=== PATIENT | male | born 1950 | race Caucasian/White ===

== ENCOUNTER 2018-06-07 14:09 | Day surgery (SDC) | payer MEDICARE ==
[~2018-06-07] VITALS: Ht 193 cm; Wt 122.6 kg
[~2018-06-07 14:09] MED LIST: ASCO500 PO; ASPI325; ATENOLOL-? DOSE; CALCAVITDA; CARV25 PO; CARV3.125 PO; CHOL10002 PO; CRUTCH2 USE; CYCL10 PO; Caltrate-600 W1 EACH PO; Coq-10100 MG PO; Coreg CR20 MG; DIGO.25; Depo-Testos200 MG/ML IM; HYDACE5 PO; LISI10 PO; LOSA25 PO; Lamisil At6 GM PO; MULVITB&C PO; MULVITMIND; MYRBETRIQ25 MG PO; OMEG1CAP30 PO; OMEP20ER; OMEP20ER PO; PROACE100 PO; SCOPTP TOP; TAMS.4ER PO; TERBINAFINE HCL PO; TRAACE PO; VALS80 PO; Vitamin C100 M1 PO; WARF3 PO; WARF5 PO; [UNRECOGNIZED DRUG - REMARK]
== END 2018-06-07 15:49 | disposition home or self-care (01) ==
LOC: ORSCSDS 14:09
PROVIDERS: Surgery
PROC: 0DBK8ZX Excision of Ascending Colon, Via Natural or Artificial Opening Endoscopic, Diagnostic (ICD-10-PCS; principal; 2018-06-07 15:15)
PROC: 0DBL8ZX Excision of Transverse Colon, Via Natural or Artificial Opening Endoscopic, Diagnostic (ICD-10-PCS; principal; 2018-06-07 15:15)
DX: Z86.010 Personal history of colon polyps (principal); D12.2 Benign neoplasm of ascending colon; D12.3 Benign neoplasm of transverse colon; I10 Essential (primary) hypertension; I48.91 Unspecified atrial fibrillation; Z79.01 Long term (current) use of anticoagulants; Z95.0 Presence of cardiac pacemaker; Z79.899 Other long term (current) drug therapy

== ENCOUNTER 2018-10-24 07:29 | Emergency (ER) | payer MEDICARE ==
[~2018-10-24] VITALS: Ht 193 cm; Wt 122.5 kg
[~2018-10-24 07:29] MED LIST changes: +WARF2 PO
[2018-10-24 08:11] LABS: BASOPHILS ABSOLUTE AUTO 0.04 K/mm3 (0.00-0.23); BASOPHILS PERCENT AUTO 1 % (0-2); EOSINOPHILS ABSOLUTE AUTO 0.24 K/mm3 (0.00-0.68); EOSINOPHILS PERCENT AUTO 4 % (0-6); Hematocrit 54.7 % (37.0-53.0); Hemoglobin 17.6 g/dL (13.5-17.5); IMMATURE GRAN ABSOLUTE AUTO 0.04 K/mm3 (0.00-0.10); IMMATURE GRAN PERCENT AUTO 1 % (0-1); LYMPHOCYTES ABSOLUTE AUTO 1.59 K/mm3 (0.84-5.20); LYMPHOCYTES PERCENT AUTO 24 % (21-46); MONOCYTES ABSOLUTE AUTO 0.43 K/mm3 (0.16-1.47); MONOCYTES PERCENT AUTO 6 % (4-13); Mean Corpuscular HGB Conc 32.2 g/dL (31.5-36.5); Mean Corpuscular Volume 97 fL (80-100); Mean Platelet Volume 10.9 fL (9.1-12.4); NEUTROPHILS ABSOLUTE AUTO 4.39 K/mm3 (1.96-9.15); NEUTROPHILS PERCENT AUTO 65 % (41-73); Platelet Count 142 K/mm3 (150-400); RDW Coefficient Variation 14.4 % (11.7-14.2); RDW Standard Deviation 51.6 fL (35.1-46.3); Red Blood Cell Count 5.67 M/mm3 (4.30-5.90); White Blood Cell Count 6.73 K/mm3 (4.00-11.30)
[2018-10-24 08:30] LABS: Alanine Aminotransfer (ALT/SGP 40 U/L (12-78); Albumin, Blood 3.8 g/dL (3.4-5.0); Alk Phos 63 U/L (50-136); Anion Gap 6 mmol/L (6-16); Aspartate Aminotrans (AST/SGOT 29 U/L (12-37); Bilirubin, Total 1.1 mg/dL (0.1-1.0); Blood Urea Nitrogen 17 mg/dL (8-24); Bun/Creatinine Ratio 15.3 (12.0-20.0); CO2, Blood 29 mmol/L (21-32); Calcium, Blood 8.3 mg/dL (8.5-10.1); Chloride, Blood 105 mmol/L (98-108); Creatinine, Blood 1.11 mg/dL (0.60-1.20); Globulin, Blood 3.7 g/dL (2.2-4.0); Glomerular Filtration Rate >60 (60-); Glucose, Blood 169 mg/dL (70-99); Potassium, Blood 5.9 mmol/L (3.5-5.5); Sodium, Blood 140 mmol/L (136-145); Total Protein, Blood 7.5 g/dL (6.4-8.2); Troponin I <0.015 ng/mL (0.000-0.040)
[2018-10-24 10:42] LABS: International Normalized Ratio 3.56; Prothrombin Time Results 34.1 Sec (9.7-11.5)
== END 2018-10-24 11:15 | disposition home or self-care (01) ==
LOC: ER 07:29
PROVIDERS: Emergency Medicine
DX: R42 Dizziness and giddiness (principal); E87.5 Hyperkalemia; I48.91 Unspecified atrial fibrillation; Z88.5 Allergy status to narcotic agent; Z79.899 Other long term (current) drug therapy; Z79.01 Long term (current) use of anticoagulants; K21.9 Gastro-esophageal reflux disease without esophagitis; Z87.891 Personal history of nicotine dependence
CPT/HCPCS: 36415; 80053; 84484; 85025; 85610; 93005; 93010; 96361; 96374; 99284-25; J2550; J7030

== ENCOUNTER → 2019-05-06 | Outpatient (CLI) | payer MEDICARE | END | disposition home or self-care (01) | LOC: LAB 19:25 → LAB SHORT 19:25 | DX: J02.9 Acute pharyngitis, unspecified (principal) | CPT/HCPCS: 87081 ==

== ENCOUNTER 2020-04-01 05:48 | Day surgery (SDC) | payer MEDICARE ==
[~2020-04-01] VITALS: Ht 193 cm; Wt 125.0 kg
[~2020-04-01 05:48] MED LIST changes: +ASPIR 8181 M1 PO; +ATOR20 PO; -CHOL10002 PO; +Omega 3 1,0001 EACH PO; +SILODOSIN8 MG PO; -TRAACE PO; +Ultracet PO; +VITAMIN B COMP1 EACH PO; +VITAMIN D31000 UNI1 PO
[2020-04-01] MEDS ORDERED: Coumadin2 MG PO (06:36)
[2020-04-01 06:50] LABS: International Normalized Ratio 1.4; Prothrombin Time Results 14.7 Sec (9.7-11.5)
--- NOTE | 2020-04-01 08:32 | NUR ---
PT RETURNED TO RECOVERY ROOM IN RECLINER. RIGHT RADIAL TR BAND SITE WITH WRIST BOARD SOFT NON-TENDER WITH NO HEMATOMA, NO PULSATILE BLEEDING. RIGHT AC VENOUS SITE SOFT NON-TENDER WITH NO HEMATOMA, NO BLEEDING AND INTACT DRESSING. PT DENIES CP. PT DRINKING COFFEE WITH CALL LIGHT IN REACH.
--- NOTE | 2020-04-01 08:41 | NUR ---
NO CHANGES TO EITHER RIGHT RADIAL TR BAND SITE OR RIGHT AC SITE.
--- NOTE | 2020-04-01 09:10 | NUR ---
NO CHANGES TO RIGHT RADIAL OR RIGHT AC SITES. PT EATING BREAKFAST.
--- NOTE | 2020-04-01 09:37 | NUR ---
NO CHANGES TO RIGHT RADIAL OR RIGHT AC SITES.
--- NOTE | 2020-04-01 10:30 | NUR ---
DISCHARGE INSTRUCTIONS REVIEWED ALL QUESTIONS ANSWERED. 5 CC OF AIR REMOVED OUT OF RIGHT TR BAND THEN PULSATILE BLEEDING NOTED - 3 CC AIR PLACED BACK INTO TR BAND TO STOP BLEEDING - WILL CONTINUE TO MONITOR.
--- NOTE | 2020-04-01 10:59 | NUR ---
9 CC OF AIR REMOVED OVER 10 MIN OUT OF NOW DEFLATED RIGHT TR BAND - NO HEMATOMA, NO PULSATILE BLEEDING, SOFT NON-TENDER.
--- NOTE | 2020-04-01 11:06 | NUR ---
NO CHANGES TO DEFLATED RIGHT TR BAND SITE. NO CHANGES TO RIGHT AC SITE.
--- NOTE | 2020-04-01 12:06 | NUR ---
DEFLATED RIGHT TR BAND REMOVED AND POLYMEM PLACED OVER RIGHT RADIAL SITE. NO CHANGES TO RIGHT AC SITE. 20 IV DISCONTINUED FROM LEFT AC WITH INTACT CANNULA. PT AMBULATED TO BR TO VOID. PT ESCORTED OUT VIA WHEELCHAIR ESCORT. NO CHANGES TO RIGHT RADIAL SITE.
== END 2020-04-01 12:10 | disposition home or self-care (01) ==
LOC: MHTC 05:48
PROVIDERS: Internal Medicine Cardiovascular Disease
PROC: B2111ZZ Fluoroscopy of Multiple Coronary Arteries using Low Osmolar Contrast (ICD-10-PCS; principal; 2020-04-01)
PROC: 4A023N8 Measurement of Cardiac Sampling and Pressure, Bilateral, Percutaneous Approach (ICD-10-PCS; principal; 2020-04-01)
DX: I42.0 Dilated cardiomyopathy (principal); I25.10 Atherosclerotic heart disease of native coronary artery without angina pectoris; I48.19 Other persistent atrial fibrillation; I10 Essential (primary) hypertension; E66.01 Morbid (severe) obesity due to excess calories; I77.819 Aortic ectasia, unspecified site; Z95.810 Presence of automatic (implantable) cardiac defibrillator; Z95.5 Presence of coronary angioplasty implant and graft; Z79.899 Other long term (current) drug therapy; Z79.01 Long term (current) use of anticoagulants; Z79.82 Long term (current) use of aspirin; Z87.891 Personal history of nicotine dependence
CPT/HCPCS: 85610; 93460; 99152; 99153; C1769; C1894; J0690; J1644; J2250; J3010; J7030; Q9967

== ENCOUNTER 2021-11-29 10:30 | Emergency (ER) | payer MEDICARE ==
[~2021-11-29] VITALS: Ht 172.7 cm; Wt 99.8 kg
[~2021-11-29 10:30] MED LIST changes: +Coumadin2 MG PO
[2021-11-29 11:09] LABS: BASOPHILS ABSOLUTE AUTO 0.05 K/mm3 (0.00-0.23); BASOPHILS PERCENT AUTO 1 % (0-2); EOSINOPHILS ABSOLUTE AUTO 0.17 K/mm3 (0.00-0.68); EOSINOPHILS PERCENT AUTO 2 % (0-6); Hematocrit 53.7 % (37.0-53.0); Hemoglobin 17.8 g/dL (13.5-17.5); IMMATURE GRAN ABSOLUTE AUTO 0.03 K/mm3 (0.00-0.10); IMMATURE GRAN PERCENT AUTO 0 % (0-1); LYMPHOCYTES ABSOLUTE AUTO 2.13 K/mm3 (0.84-5.20); LYMPHOCYTES PERCENT AUTO 28 % (21-46); MONOCYTES ABSOLUTE AUTO 0.53 K/mm3 (0.16-1.47); MONOCYTES PERCENT AUTO 7 % (4-13); Mean Corpuscular HGB 30.7 pg (26.0-34.0); Mean Corpuscular HGB Conc 33.1 g/dL (31.5-36.5); Mean Corpuscular Volume 93 fL (80-100); Mean Platelet Volume 12.2 fL (9.1-12.4); NEUTROPHILS ABSOLUTE AUTO 4.73 K/mm3 (1.96-9.15); NEUTROPHILS PERCENT AUTO 62 % (41-73); Platelet Count 136 K/mm3 (150-400); RDW Coefficient Variation 12.7 % (11.7-14.2); RDW Standard Deviation 43.1 fL (35.1-46.3); White Blood Cell Count 7.64 K/mm3 (4.00-11.30)
[2021-11-29 11:20] LABS: Albumin, Blood 4.2 g/dL (3.4-5.0); Albumin/Globulin Ratio 1.1 (0.8-1.8); Bilirubin, Total 0.8 mg/dL (0.1-1.0); Bun/Creatinine Ratio 26.5 (12.0-20.0); Calcium, Blood 9.1 mg/dL (8.5-10.1); Creatinine, Blood 1.32 mg/dL (0.60-1.20); Globulin, Blood 3.7 g/dL (2.2-4.0); Potassium, Blood 4.7 mmol/L (3.5-5.5); Total Protein, Blood 7.9 g/dL (6.4-8.2)
[2021-11-29 11:24] LABS: International Normalized Ratio 1.7; Prothrombin Time Results 17.2 Sec (9.7-11.5)
== END 2021-11-29 12:17 | disposition home or self-care (01) ==
LOC: ER 10:30
PROVIDERS: Anesthesiology; Emergency Medicine
DX: R55 Syncope and collapse (principal); S01.01XA Laceration without foreign body of scalp, initial encounter; I48.20 Chronic atrial fibrillation, unspecified; Z87.891 Personal history of nicotine dependence; Z88.5 Allergy status to narcotic agent; Z79.899 Other long term (current) drug therapy; X58.XXXA Exposure to other specified factors, initial encounter
CPT/HCPCS: 70450; 71045; 72125; 80053; 83880; 84484; 85025; 85610; 90471; 90714; 93005; 93010; 99284-25

== ENCOUNTER 2021-12-26 11:20 | Emergency (ER) | payer MEDICARE ==
[~2021-12-26] VITALS: Ht 193 cm; Wt 117.9 kg
[2021-12-26] MEDS ORDERED: JANTOVEN2 MG PO (11:59)
[2021-12-26 12:00] LABS: BASOPHILS ABSOLUTE AUTO 0.02 K/mm3 (0.00-0.23); BASOPHILS PERCENT AUTO 0 % (0-2); EOSINOPHILS ABSOLUTE AUTO 0.14 K/mm3 (0.00-0.68); EOSINOPHILS PERCENT AUTO 2 % (0-6); Hemoglobin 16.4 g/dL (13.5-17.5); IMMATURE GRAN ABSOLUTE AUTO 0.01 K/mm3 (0.00-0.10); IMMATURE GRAN PERCENT AUTO 0 % (0-1); LYMPHOCYTES ABSOLUTE AUTO 1.49 K/mm3 (0.84-5.20); LYMPHOCYTES PERCENT AUTO 25 % (21-46); MONOCYTES ABSOLUTE AUTO 0.37 K/mm3 (0.16-1.47); MONOCYTES PERCENT AUTO 6 % (4-13); Mean Corpuscular HGB 30.4 pg (26.0-34.0); Mean Corpuscular HGB Conc 32.8 g/dL (31.5-36.5); Mean Corpuscular Volume 93 fL (80-100); Mean Platelet Volume 11.7 fL (9.1-12.4); NEUTROPHILS ABSOLUTE AUTO 3.93 K/mm3 (1.96-9.15); NEUTROPHILS PERCENT AUTO 66 % (41-73); Platelet Count 141 K/mm3 (150-400); RDW Coefficient Variation 13.2 % (11.7-14.2); RDW Standard Deviation 44.9 fL (35.1-46.3); Red Blood Cell Count 5.39 M/mm3 (4.30-5.90); White Blood Cell Count 5.96 K/mm3 (4.00-11.30)
[2021-12-26] MEDS ORDERED: ENTRESTO 97 MG1 EAC3 PO (12:00)
[2021-12-26] MEDS ORDERED: METFORMIN HCL500 M2 PO (12:01)
[2021-12-26] MEDS ORDERED: ACE PO (12:04)
[2021-12-26] MEDS ORDERED: TRAMADOL PO (12:04)
[2021-12-26] MEDS ORDERED: LATANOPROST2.5 M3 LEFTEYE (12:08)
[2021-12-26 12:25] LABS: International Normalized Ratio 2.15; Prothrombin Time Results 21.5 Sec (9.7-11.5)
[2021-12-26 12:28] LABS: Albumin, Blood 4.1 g/dL (3.4-5.0); Albumin/Globulin Ratio 1.1 (0.8-1.8); Bun/Creatinine Ratio 20.2 (12.0-20.0); Creatinine, Blood 1.19 mg/dL (0.60-1.20); Globulin, Blood 3.8 g/dL (2.2-4.0); Potassium, Blood 4.7 mmol/L (3.5-5.5); Total Protein, Blood 7.9 g/dL (6.4-8.2)
== END 2021-12-26 16:02 | disposition home or self-care (01) ==
LOC: ER 11:20
PROVIDERS: Emergency Medicine; Physician Assistant
DX: R55 Syncope and collapse (principal); K21.9 Gastro-esophageal reflux disease without esophagitis
CPT/HCPCS: 36415; 71045; 80053; 83690; 84484; 85025; 85610; 93005; 93010; 99284-25; J7030

== ENCOUNTER 2022-01-14 08:32 | Day surgery (SDC) | payer MEDICARE ==
[~2022-01-14] VITALS: Ht 190.5 cm; Wt 116.0 kg
[~2022-01-14 08:32] MED LIST changes: +ACE PO; +ENTRESTO 97 MG1 EAC3 PO; +ENTRESTO 97 MG1 EACH PO; +JANTOVEN2 MG PO; +LATANOPROST2.5 M3 LEFTEYE; +METFORMIN HCL500 M2 PO; +TRAMADOL PO
[2022-01-14 10:33] LABS: International Normalized Ratio 1.84; Prothrombin Time Results 18.6 Sec (9.7-11.5)
--- NOTE | 2022-01-14 13:20 | NUR ---
patient in recovery room, alert and responds appropriately. right groin ite soft and nontender, dressing D&I, no hematoma, no bleeding.
--- NOTE | 2022-01-14 14:41 | NUR ---
PATIENT HOB UP 30 DEGREE. RIGHT GROIN SITE STABLE.
--- NOTE | 2022-01-14 15:45 | NUR ---
PATIENT AMBULATED TO REST ROOM BY SELF, DENIES DIZZINESS, RIGHT GROIN SITE STABLE.
--- NOTE | 2022-01-14 16:00 | NUR ---
PATIENT DRESSED SITTING AT SIDE OF BED. DR HEATH TO DISCUSS ANGIOGRAM FINDINGS WITH PATIENT AND .
--- NOTE | 2022-01-14 16:10 | NUR ---
PATIENT VERBALIZED UNDERSTANDING OF DISCHARGE INSTRUCTIONS AND PRECAUTIONS. NO FURTHER QUESTIONS. IV SITE DCED WITH CATHETER INTACT. RIGHT GROIN REMAINS SOFT AND NONTENDER, NO HEMATOMA, NO BLEEDING. PATIENT TRANSFERRED VIA WHEEL CHAIR BY CHARAN BREEN TO CAR WITH E DRIVEING.
== END 2022-01-14 23:20 | disposition home or self-care (01) ==
LOC: MHTC 08:32
PROVIDERS: Radiology Diagnostic Radiology
DX: G45.0 Vertebro-basilar artery syndrome (principal); I25.10 Atherosclerotic heart disease of native coronary artery without angina pectoris; I11.0 Hypertensive heart disease with heart failure; I50.9 Heart failure, unspecified; I48.19 Other persistent atrial fibrillation; E78.5 Hyperlipidemia, unspecified; Z88.5 Allergy status to narcotic agent; Z95.0 Presence of cardiac pacemaker; Z79.01 Long term (current) use of anticoagulants
CPT/HCPCS: 36223; 36225; 36226; 36245; 36246; 36247; 36415; 76937; 85610; 99152; 99153; C1760; C1769; C1887; C1894; J1644; J2250; J3010; J7030; J7050; Q9967

== ENCOUNTER → 2022-09-12 | Outpatient (CLI) | payer MEDICARE ==
[2022-09-12 13:46] LABS: Protein, Urine Quantitative 11.1 mg/dL (0.0-11.9)
== END | disposition home or self-care (01) ==
LOC: LAB 10:53 → LAB SHORT 10:53
PROVIDERS: Family Medicine
DX: R80.9 Proteinuria, unspecified (principal)
CPT/HCPCS: 81050; 84156

== ENCOUNTER 2022-10-20 06:26 | Day surgery (SDC) | payer MEDICARE ==
[~2022-10-20] VITALS: Ht 190.5 cm; Wt 116.0 kg
[2022-10-20] MEDS ORDERED: EZET10 PO (07:04)
[2022-10-20] MEDS ORDERED: METO100ER PO (07:09)
[2022-10-20] MEDS ORDERED: [UNRECOGNIZED DRUG - REMARK] TOP (07:13)
--- NOTE | 2022-10-20 10:11 | NUR ---
pt report from miguel archibald. pt a&ox4. pt sitting up in chair eating breakfast.
--- NOTE | 2022-10-20 11:11 | NUR ---
PRESCRIPTION CALLED INTO PHARMACY. PT FINISHED EATING BREAKFAST. SO AT BEDSIDE.
--- NOTE | 2022-10-20 11:40 | NUR ---
PT GIVEN COFFEE PER REQUEST.
--- NOTE | 2022-10-20 14:21 | NUR ---
PT GIVEN DC INSTRUCTIONS AND VERBALIZED UNDERSTADNING. IV OUT. PT CHANGED INTO CLOTHES. DR JOHNS CHANGED DRESSING. PT TAKEN TO [facility] VIA WC BY RAJAN ORDAZ.
== END 2022-10-20 12:45 | disposition home or self-care (01) ==
LOC: MHTC 06:26
DX: Z45.02 Encounter for adjustment and management of automatic implantable cardiac defibrillator (principal); I25.10 Atherosclerotic heart disease of native coronary artery without angina pectoris; I10 Essential (primary) hypertension; E78.5 Hyperlipidemia, unspecified; I48.19 Other persistent atrial fibrillation; I42.0 Dilated cardiomyopathy
CPT/HCPCS: 33263; 99152; 99153; C1721; C1781; J0690; J1644; J2250; J3010; J7030; J7040

== ENCOUNTER → 2023-12-09 | Outpatient (CLI) | payer MEDICARE ==
[~2023-12-09] MED LIST changes: +EZET10 PO; +METO100ER PO; +[UNRECOGNIZED DRUG - REMARK] TOP
== END ==
LOC: LAB SHORT 10:00 → LAB 10:00
DX: L97.509 Non-pressure chronic ulcer of other part of unspecified foot with unspecified severity (principal)
CPT/HCPCS: 87070; 87075; 87077; 87147; 87186; 87205

== ENCOUNTER 2024-11-07 06:43 | Day surgery (SDC) | payer MEDICARE ==
[~2024-11-07] VITALS: Ht 193 cm; Wt 116.0 kg
[2024-11-07] VITALS (7 sets, daily range): BP systolic 94–106; BP diastolic 56–80
[~2024-11-07 06:43] MED LIST changes: +ENTRESTO 49 MG1 EAC2; -ENTRESTO 97 MG1 EAC3 PO; +GABA100 PO; -JANTOVEN2 MG PO; +JANTOVEN2.5 M2 PO; +MULTIVITAMIN; +THERA-D2000 UNIT PO; -VITAMIN D31000 UNI1 PO
[2024-11-07] MEDS ORDERED: Heparin Sodium 1000 Units/ML 10ML MDV ONE ×2 (06:49→08:29)
[2024-11-07] MEDS ORDERED: NS 500 ML IV ONE (06:49)
[2024-11-07] MEDS ORDERED: NS 1,000 ML IV ONE ×2 (06:49→07:49)
[2024-11-07] MEDS ORDERED: PREG150 PO (07:15)
[2024-11-07] MEDS ORDERED: Midazolam HCl 1MG / ML 2ML Vial ONE ×2 (07:48→08:29)
[2024-11-07] MEDS ORDERED: FentaNYL Citrate 50 MCG/ML 2 ML Injection ONE ×2 (07:49→08:29)
[2024-11-07] MEDS ORDERED: Verapamil HCL 2.5 MG/ML 2ML Injection ONE (08:58)
[2024-11-07] MEDS ORDERED: Nitroglycerin 2 MG/20 ML BTL ONE (08:58)
--- NOTE | 2024-11-07 10:17 | NUR ---
PT RETURNED TO RECOVERY ROOM IN BED. LEFT FEMORAL GROIN SITE SOFT NON-TENDER WITH NO HEMATOMA, NO PULSATILE BLEEDING AND INTACT DRESSING. R DP PEDAL SITE SOFT NON-TENDER WITH NO HEMATOMA, NO PULSATILE BLEEDING AND INTACT DRESSING. PT'S IN ROOM. CALL LIGHT IN REACH. DR LANCE IN ROOM TO SEE PT.
--- NOTE | 2024-11-07 11:04 | NUR ---
HOB UP TO 45 DEGREES.
--- NOTE | 2024-11-07 11:25 | NUR ---
NO CHANGES TO R DP OR L FEM SITES. DISCHARGE INSTURCTIONS REVIEWED ALL QUESTIONS ANSWERED. PT DRINKING COFFEE.
--- NOTE | 2024-11-07 12:01 | NUR ---
R DP AND L FEM SITES STILL SOFT NON-TENDER WITH NO HEMATOMA AND NO PULSATILE BLEEDING. 20 G IV DISCONTINUED FROM LEFT AC WITH INTACT CANNULA. PT ESCORTED OUT VIA WHEELCHAIR ESCORT. L PT STILL DOPPLER.
== END 2024-11-07 12:00 | disposition home or self-care (01) ==
LOC: MHTC 06:43
DX: E11.51 Type 2 diabetes mellitus with diabetic peripheral angiopathy without gangrene (principal); I70.235 Atherosclerosis of native arteries of right leg with ulceration of other part of foot; L97.519 Non-pressure chronic ulcer of other part of right foot with unspecified severity; I10 Essential (primary) hypertension; I25.10 Atherosclerotic heart disease of native coronary artery without angina pectoris; E78.5 Hyperlipidemia, unspecified; I48.91 Unspecified atrial fibrillation; G47.33 Obstructive sleep apnea (adult) (pediatric); Z87.891 Personal history of nicotine dependence; Z79.82 Long term (current) use of aspirin; Z79.84 Long term (current) use of oral hypoglycemic drugs; Z79.01 Long term (current) use of anticoagulants; Z79.899 Other long term (current) drug therapy; Z88.5 Allergy status to narcotic agent; Z95.0 Presence of cardiac pacemaker
CPT/HCPCS: 36140; 36200; 36245; 75625; 75710; 75716; 75774; 76937; 85347; 99152; 99153; C1725; C1753; C1760; C1769; C1887; C1894; J1644; J2250; J3010; J7030; J7050; Q9967

== ENCOUNTER → 2025-02-28 | Outpatient (CLI) | payer MEDICARE ==
[~2025-02-28] MED LIST changes: +PREG150 PO
== END | disposition home or self-care (01) ==
LOC: LAB 13:00 → LAB SHORT 13:00
DX: R31.0 Gross hematuria (principal)
CPT/HCPCS: 82043

== ENCOUNTER 2025-03-06 10:22 | Inpatient (IN) | payer MEDICARE ==
[~2025-03-06] VITALS: Ht 193 cm; Wt 118.2 kg
[~2025-03-06 10:22] MED LIST changes: +ENTRESTO 24 MG1 EACH PO; -ENTRESTO 49 MG1 EAC2
[2025-03-06] MEDS ORDERED: Metoprolol Tartrate 1 MG/ML 5 ML VIAL IV PRN (11:05)
[2025-03-06] MEDS ORDERED: NS 1,000 ML IV SCH ×2 (11:05→17:00)
[2025-03-06] MEDS ORDERED: Ondansetron HCl 2 MG / ML 2ML Vial IV ONE (11:05)
[2025-03-06 11:26] LABS: BASOPHILS ABSOLUTE AUTO 0.04 K/mm3 (0.00-0.23); BASOPHILS PERCENT AUTO 0 % (0-2); EOSINOPHILS ABSOLUTE AUTO 0.04 K/mm3 (0.00-0.68); EOSINOPHILS PERCENT AUTO 0 % (0-6); Hematocrit 45.1 % (37.0-53.0); Hemoglobin 14.8 g/dL (13.5-17.5); IMMATURE GRAN ABSOLUTE AUTO 0.03 K/mm3 (0.00-0.10); IMMATURE GRAN PERCENT AUTO 0 % (0-1); LYMPHOCYTES ABSOLUTE AUTO 1.27 K/mm3 (0.84-5.20); LYMPHOCYTES PERCENT AUTO 10 % (21-46); MONOCYTES ABSOLUTE AUTO 0.42 K/mm3 (0.16-1.47); MONOCYTES PERCENT AUTO 3 % (4-13); Mean Corpuscular HGB 30.2 pg (26.0-34.0); Mean Corpuscular HGB Conc 32.8 g/dL (31.5-36.5); Mean Corpuscular Volume 92 fL (80-100); Mean Platelet Volume 11.1 fL (9.1-12.4); NEUTROPHILS ABSOLUTE AUTO 10.86 K/mm3 (1.96-9.15); NEUTROPHILS PERCENT AUTO 86 % (41-73); Platelet Count 170 K/mm3 (150-400); RDW Coefficient Variation 15.1 % (11.7-14.2); White Blood Cell Count 12.66 K/mm3 (4.00-11.30)
[2025-03-06 11:39] LABS: Prothrombin Time Results 20.3 Sec (9.7-11.5)
[2025-03-06 12:00] LABS: Influenza A, PCR NEGATIVE (NEGATIVE); Influenza B, PCR NEGATIVE (NEGATIVE); Resp Syncytial Virus, PCR NEGATIVE (NEGATIVE); SARS-Cov-2 (COVID-19) PCR, MMC NEGATIVE (NEGATIVE)
[2025-03-06 12:05] LABS: Bun/Creatinine Ratio 22.9 (12.0-20.0); Calcium, Blood 8.3 mg/dL (8.5-10.1); Creatinine, Blood 1.05 mg/dL (0.60-1.20); Potassium, Blood 5.8 mmol/L (3.5-5.5)
[2025-03-06 12:16] LABS: Bicarbonate Venous 22.6 mmol/L (24.0-30.0); PCO2 Venous 49.7 mmHg (38-42); pH Blood Venous 7.31 (7.34-7.37)
[2025-03-06] MEDS ORDERED: Sodium Zirconium Cyclosilicate 10 GM Packet PO ONE (12:40)
[2025-03-06] MEDS ORDERED: Insulin Regular 100 Unit/ML 1ML Dose IV ONE (12:40)
[2025-03-06] MEDS ORDERED: Albuterol 2.5 MG/3 ML VIAL INH SCH (12:40)
[2025-03-06] MEDS ORDERED: Dextrose 50% 50 ML Syringe IV ONE (12:40)
[2025-03-06] MEDS ORDERED: Magnesium Sulf 2 GM/Water 50ML 50 ML IV ONE (12:50)
[2025-03-06] MEDS ORDERED: NS 250 ML IV SCH (13:00)
[2025-03-06] MEDS ORDERED: CefTRIAXone Sodium 1,000 MG in NS 100 ML IV ONE (13:30)
[2025-03-06] MEDS ORDERED: Doxycycline Hyclate 100 MG in Dextrose 5% 250 ML IV ONE (13:30)
[2025-03-06] MEDS ORDERED: FentaNYL Citrate 50 MCG/ML 2 ML Injection IV ONE (13:55)
[2025-03-06] MEDS ORDERED: Midazolam HCl 1MG / ML 2ML Vial IV ONE (13:55)
[2025-03-06 15:35] LABS: Bun/Creatinine Ratio 19.5 (12.0-20.0); Calcium, Blood 7.8 mg/dL (8.5-10.1); Creatinine, Blood 1.18 mg/dL (0.60-1.20); Potassium, Blood 4.2 mmol/L (3.5-5.5)
[2025-03-06] MEDS ORDERED: Digoxin 0.5 MG in NS 8 ML IV ONE (15:35)
[2025-03-06] MEDS ORDERED: Magnesium Hydroxide Conc 10 ML UDC PO PRN (16:50)
[2025-03-06] MEDS ORDERED: Warfarin Sodium 2.5 MG Tab PO ONE (18:00)
[2025-03-06 18:47] VITALS: BP 115/67
[2025-03-06] MEDS ORDERED: Digoxin 0.25 MG in NS 4 ML IV SCH (19:00)
[2025-03-06 19:44] VITALS: BP 116/54
[2025-03-06] MEDS ORDERED: Ezetimibe 10 MG Tab PO SCH (21:00)
[2025-03-06] MEDS ORDERED: Pregabalin 75 MG Cap PO SCH (21:00)
[2025-03-06] MEDS ORDERED: Insulin Human Lispro 100 Units/ML 3ML Syringe SC SCH (21:00)
[2025-03-07 00:33] VITALS: BP 130/50
[2025-03-07 03:56] VITALS: BP 122/62
[2025-03-07 04:18] LABS: BASOPHILS ABSOLUTE AUTO 0.04 K/mm3 (0.00-0.23); BASOPHILS PERCENT AUTO 0 % (0-2); EOSINOPHILS ABSOLUTE AUTO 0.11 K/mm3 (0.00-0.68); EOSINOPHILS PERCENT AUTO 1 % (0-6); Hematocrit 40.4 % (37.0-53.0); Hemoglobin 12.9 g/dL (13.5-17.5); IMMATURE GRAN ABSOLUTE AUTO 0.03 K/mm3 (0.00-0.10); IMMATURE GRAN PERCENT AUTO 0 % (0-1); LYMPHOCYTES ABSOLUTE AUTO 1.63 K/mm3 (0.84-5.20); LYMPHOCYTES PERCENT AUTO 14 % (21-46); MONOCYTES ABSOLUTE AUTO 0.59 K/mm3 (0.16-1.47); MONOCYTES PERCENT AUTO 5 % (4-13); Mean Corpuscular HGB 30.6 pg (26.0-34.0); Mean Corpuscular HGB Conc 31.9 g/dL (31.5-36.5); Mean Corpuscular Volume 96 fL (80-100); Mean Platelet Volume 11.3 fL (9.1-12.4); NEUTROPHILS ABSOLUTE AUTO 9.56 K/mm3 (1.96-9.15); NEUTROPHILS PERCENT AUTO 80 % (41-73); Platelet Count 144 K/mm3 (150-400); RDW Coefficient Variation 15.3 % (11.7-14.2); RDW Standard Deviation 53.5 fL (35.1-46.3); Red Blood Cell Count 4.22 M/mm3 (4.30-5.90); White Blood Cell Count 11.96 K/mm3 (4.00-11.30)
[2025-03-07 04:34] LABS: International Normalized Ratio 2.18
[2025-03-07 04:40] LABS: Albumin, Blood 3.2 g/dL (3.4-5.0); Bilirubin, Total 0.6 mg/dL (0.1-1.0); Calcium, Blood 7.9 mg/dL (8.5-10.1); Creatinine, Blood 1.19 mg/dL (0.60-1.20); Globulin, Blood 3.2 g/dL (2.2-4.0); Potassium, Blood 4.1 mmol/L (3.5-5.5); Total Protein, Blood 6.4 g/dL (6.4-8.2)
[2025-03-07] MEDS ORDERED: Acetaminophen 325 MG TABLET PO PRN (05:30)
[2025-03-07] MEDS ORDERED: Omeprazole 20 MG CapCR PO SCH (06:00)
--- NOTE | 2025-03-07 06:52 | NUR ---
SHIFT SUMMARY: PT IS A&OX4, [place], PLEASANT AND COOPERATIVE WITH CARE. VSS, ON 2L NC. PT IS NON-COMPLIANT WITH HIS CPAP AT HOME. A-FIB 70'S-90'S, 130'S-140'S WITH EXERTION. AMIODARONE GTT INFUSING PER ORDER. PT C/O A PYLE THIS AM, NEW ORDER PLACED FOR 650MG PO TYLENOL Q4, PRN. DOES HAVE BLE NEUROPATHY. MED REC NOT COMPLETE, WILL BRING IN HIS MEDICATION LIST TODAY. TOLERATING A CONS CARB, HEART HEALTHY DIET. X1 ASSIST. VOIDING INDEPENDENTLY IN URINAL AT BEDSIDE, ADEQUATE AMOUNTS OF YELLOW URINE. NO BM THIS SHIFT. BED IN LOWEST POSITION, CALL LIGHT WITHIN REACH. CALLS APPROPRIATELY AND IS ABLE TO ADVOCATE NEEDS EFFECTIVELY.
--- NOTE | 2025-03-07 07:49 | NUR ---
ASSUMPTION NOTE: THIS RN TO ASSUME CARE OF PATIENT. PATIENT SITTING UP IN BED, WAS VISITED BY THE RESIDENTS & PLAN IS TO CONTINUE MONIOTIRNG AND GET THE IV ANTIBIOTICS HE IS RECEIVING SCHEDULED. PATIENT HAS CALL LIGHT WITHIN REACH & BED IN LOWEST POSITION STATING NOTHING IS NEEDED AT THIS TIME.
[2025-03-07] MEDS ORDERED: Doxycycline Hyclate 100 MG in Dextrose 5% 250 ML IV SCH (08:00)
[2025-03-07 08:14] VITALS: BP 126/76
[2025-03-07] MEDS ORDERED: Lactobacil 2-S.Thermo-Bifido 1 1 Cap PO SCH ×2 (09:00)
[2025-03-07] MEDS ORDERED: Aspirin 81 MG TabEC PO SCH (09:00)
[2025-03-07] MEDS ORDERED: CefTRIAXone Sodium 1,000 MG in NS 100 ML IV SCH (09:00)
[2025-03-07] MEDS ORDERED: Digoxin 0.125 MG Tab PO SCH (09:00)
[2025-03-07] MEDS ORDERED: VITAMIN D325 MC3 PO (11:10)
[2025-03-07] MEDS ORDERED: SUPER B-50 COM1 EACH PO (11:10)
[2025-03-07] MEDS ORDERED: COQ-10100 MG PO (11:11)
[2025-03-07] MEDS ORDERED: Metoprolol Succinate 50 MG TABCR PO SCH (12:00)
[2025-03-07 12:13] VITALS: BP 134/105
[2025-03-07 16:27] VITALS: BP 127/55
--- NOTE | 2025-03-07 16:49 | NUR ---
SHIFT SUMMARY: PATIENT IS ALERT AND ORIENTED X4 & COOPERATIVE WITH HIS CARE IS ABLE TO MAKE NEEDS KNOWN & USES CALL LIGHT APPROPRIATELY. PATIENT IS ON TELE SHOWING AFIB WITH RATE BETWEEN 90-115 AT TIMES, DOES TACH UP OCCASINALLY WHEN GETTING UP TO USE THE URINAL OR TRANSFER TO CHAIR. PATIENT IS ON ROOM AIR SATTING >92%. CAME TO BEDSIDE AND BROUGHT HOME MEDICATIONS AND HOME MED REC WAS UPDATED.WAS COVERED WITH INSULIN THROUGHOUT SHIFT AND WAS GIVEN TYLENOL FOR SOME BACK PAIN. PATIENT PLAN TO USE FLUTTER VALVE, CONTINUE IV ANTIBIOTICS & POSSIBLY DISCHARGE TOMORROW. HAS CALL LIGHT WITHIN REACH, BED IN LOWEST POSITION & STATING NOTHING IS NEEDED AT THIS TIME.
[2025-03-07] MEDS ORDERED: Warfarin Sodium 1 MG Tab PO ONE (18:00)
[2025-03-07 20:26] VITALS: BP 150/80
[2025-03-08 00:20] VITALS: BP 136/67
[2025-03-08 04:16] VITALS: BP 156/71
[2025-03-08 04:16] LABS: BASOPHILS ABSOLUTE AUTO 0.03 K/mm3 (0.00-0.23); BASOPHILS PERCENT AUTO 0 % (0-2); EOSINOPHILS ABSOLUTE AUTO 0.28 K/mm3 (0.00-0.68); EOSINOPHILS PERCENT AUTO 3 % (0-6); Hematocrit 38.3 % (37.0-53.0); Hemoglobin 12.5 g/dL (13.5-17.5); IMMATURE GRAN ABSOLUTE AUTO 0.05 K/mm3 (0.00-0.10); IMMATURE GRAN PERCENT AUTO 1 % (0-1); LYMPHOCYTES ABSOLUTE AUTO 1.07 K/mm3 (0.84-5.20); LYMPHOCYTES PERCENT AUTO 13 % (21-46); MONOCYTES ABSOLUTE AUTO 0.59 K/mm3 (0.16-1.47); MONOCYTES PERCENT AUTO 7 % (4-13); Mean Corpuscular HGB Conc 32.6 g/dL (31.5-36.5); Mean Corpuscular Volume 95 fL (80-100); Mean Platelet Volume 11.5 fL (9.1-12.4); NEUTROPHILS ABSOLUTE AUTO 6.18 K/mm3 (1.96-9.15); NEUTROPHILS PERCENT AUTO 75 % (41-73); Platelet Count 119 K/mm3 (150-400); RDW Coefficient Variation 14.8 % (11.7-14.2); RDW Standard Deviation 52.4 fL (35.1-46.3); Red Blood Cell Count 4.03 M/mm3 (4.30-5.90)
[2025-03-08 04:32] LABS: International Normalized Ratio 1.72; Prothrombin Time Results 17.7 Sec (9.7-11.5)
--- NOTE | 2025-03-08 04:41 | NUR ---
PT ALERT AND ORIENTED X4, GOOD URINE OUTPUT, NO BLOOD NOTED. NO COUGHING UP BLOOD DURING SHIFT EITHER. HR AFIB CONTROLLED, DENIES SOB/CHEST PAIN. PLEASANT, RRR AND UNLABORED, PLACED ON 2-4L O2 OVERNIGHT WHILE ASLEEP TO MAINTAIN ADEQUATE O2 SATS, VSS, NO CONCERNS AT THIS TIME.
[2025-03-08 05:24] LABS: Albumin, Blood 3.1 g/dL (3.4-5.0); Albumin/Globulin Ratio 0.9 (0.8-1.8); Bilirubin, Total 0.7 mg/dL (0.1-1.0); Bun/Creatinine Ratio 16.1 (12.0-20.0); Calcium, Blood 8.3 mg/dL (8.5-10.1); Creatinine, Blood 1.24 mg/dL (0.60-1.20); Globulin, Blood 3.3 g/dL (2.2-4.0); Potassium, Blood 4.8 mmol/L (3.5-5.5); Total Protein, Blood 6.4 g/dL (6.4-8.2)
[2025-03-08 07:53] VITALS: BP 134/71
[2025-03-08] MEDS ORDERED: Empagliflozin 10 MG TAB PO SCH (09:00)
[2025-03-08] MEDS ORDERED: Sacubitril/Valsartan 24 MG-26 MG Tab PO SCH (09:00)
--- NOTE | 2025-03-08 11:08 | NUR ---
STUDENT RN CHARTING REVIEW THIS RN OVERSAW AND REVIEWED STUDENT RN'S ASSESSMENTS AND CHARTING. THIS RN AGREES WITH STUDENT RN CHARTING.
[2025-03-08] MEDS ORDERED: CEFP200 PO (11:55)
[2025-03-08] MEDS ORDERED: JARDIANCE10 MG PO (11:56)
[2025-03-08] MEDS ORDERED: DOXY100 PO (11:56)
[2025-03-08] MEDS ORDERED: VISBIOME 112.51 EACH PO (11:57)
[2025-03-08] MEDS ORDERED: DIGOX125 MC1 PO (11:58)
[2025-03-08] MEDS ORDERED: Dose Adjust by Pharmacy XX STA (12:01)
[2025-03-08 12:51] VITALS: BP 147/76
[2025-03-08] MEDS ORDERED: Digoxin 0.125 MG Tab PO ONE (12:55)
--- NOTE | 2025-03-08 13:06 | NUR ---
DISCHARGE UPDATE DISCHARGE PACKET GONE OVER WITH PT AND FAMILY MEMBER AT 1250. PT DISCHARGED AT 1300 VIA WHEELCHAIR AND ON RA. PT ABLE TO TRANSFER TO AND FROM WHEELCHAIR ON HIS OWN, TOLERATED WELL. DISCHARGE PACKET WITH PT AT TIME OF DISCHARGE. PT PERSONAL BELONGINGS WITH PT ATTIME OF DISCHARGE.
[2025-03-08] MEDS ORDERED: Warfarin Sodium 2.5 MG Tab PO SCH (18:00)
[2025-03-08] MEDS ORDERED: Doxycycline Hyclate 100 MG TAB PO SCH (21:00)
== END 2025-03-08 13:10 | disposition home or self-care (01) | DRG 871 ==
LOC: ER 10:22 → PCU 16:48
PROVIDERS: Emergency Medicine; Internal Medicine Cardiovascular Disease; Student in an Organized Health Care Education/Training Program; ADMIT Hospitalist
DX: A41.9 Sepsis, unspecified organism (principal); J18.9 Pneumonia, unspecified organism; J96.01 Acute respiratory failure with hypoxia; J96.02 Acute respiratory failure with hypercapnia; I50.22 Chronic systolic (congestive) heart failure; I48.20 Chronic atrial fibrillation, unspecified; E11.9 Type 2 diabetes mellitus without complications; N40.0 Benign prostatic hyperplasia without lower urinary tract symptoms; K21.9 Gastro-esophageal reflux disease without esophagitis; I11.0 Hypertensive heart disease with heart failure; I25.10 Atherosclerotic heart disease of native coronary artery without angina pectoris; R65.20 Severe sepsis without septic shock; E78.5 Hyperlipidemia, unspecified; Z95.0 Presence of cardiac pacemaker; Z98.890 Other specified postprocedural states; Z98.52 Vasectomy status; Z95.5 Presence of coronary angioplasty implant and graft; Z88.5 Allergy status to narcotic agent; Z79.899 Other long term (current) drug therapy; Z79.82 Long term (current) use of aspirin; Z79.01 Long term (current) use of anticoagulants; Z98.41 Cataract extraction status, right eye; Z98.42 Cataract extraction status, left eye; Z87.891 Personal history of nicotine dependence
CPT/HCPCS: 0241U; 36415; 71045; 71260; 80048; 80053; 82803; 82947; 83605; 83880; 84443; 84484; 85025; 85379; 85610; 85730; 92960; 93005; 93010; 94644; 94664; 94762; 96365-59; 96366-59; 96367-59; 96375-59; 99285-25; A9270; C1751; C8929; J0282; J0696; J1160; J2250; J2405; J3010; J3475; J7030; J7060; Q9957; Q9967

== ENCOUNTER → 2025-05-11 | Outpatient (CLI) | payer MEDICARE ==
[~2025-05-11] MED LIST changes: +CEFP200 PO; +COQ-10100 MG PO; +DIGOX125 MC1 PO; +DOXY100 PO; +JARDIANCE10 MG PO; +SUPER B-50 COM1 EACH PO; +VISBIOME 112.51 EACH PO; +VITAMIN D325 MC3 PO
[2025-05-11 13:24] LABS: Protein, Urine Quantitative 18.7 mg/dL (0.0-11.9)
[2025-05-11 13:25] LABS: Microalbumin, Urine Quant. 53.6 mg/L (0.000-20.000)
== END ==
LOC: LAB 12:11 → LAB SHORT 12:11 → LAB FUT 04-13 10:10
PROVIDERS: Internal Medicine Nephrology
DX: N18.30 Chronic kidney disease, stage 3 unspecified (principal); D63.1 Anemia in chronic kidney disease; E55.9 Vitamin D deficiency, unspecified; E78.00 Pure hypercholesterolemia, unspecified; N40.1 Benign prostatic hyperplasia with lower urinary tract symptoms; R76.9 Abnormal immunological finding in serum, unspecified; R94.5 Abnormal results of liver function studies; R94.6 Abnormal results of thyroid function studies; G60.9 Hereditary and idiopathic neuropathy, unspecified; D51.8 Other vitamin B12 deficiency anemias; D52.8 Other folate deficiency anemias; D50.9 Iron deficiency anemia, unspecified
CPT/HCPCS: 81050; 82043; 82570; 84156